=== PATIENT | female | born 1965 | race Caucasian/White ===

== ENCOUNTER → 2023-10-11 08:51 | Outpatient (REF) | payer BC, SELFPAY | LOC: RAD 08:51 | PROVIDERS: ATTENDING PHYSICIAN Internal Medicine; FAMILY PHYSICIAN Family Medicine | DX: M81.0 Age-related osteoporosis without current pathological fracture (principal); L40.50 Arthropathic psoriasis, unspecified | CPT/HCPCS: 72100; 72202; 77080 ==

== ENCOUNTER → 2023-10-12 09:49 | Outpatient (REF) | payer BC, SELFPAY | LOC: WDC 09:49 | PROVIDERS: ATTENDING PHYSICIAN Obstetrics & Gynecology Gynecology; FAMILY PHYSICIAN Family Medicine | DX: R92.2 Inconclusive mammogram (principal) | CPT/HCPCS: 76641 ==

== ENCOUNTER → 2024-05-04 10:50 | Outpatient (REF) | payer OTHER, SELFPAY | LOC: HWRAD 10:50 | PROVIDERS: ATTENDING PHYSICIAN Family Medicine | DX: R10.12 Left upper quadrant pain (principal); F41.9 Anxiety disorder, unspecified; R53.83 Other fatigue | CPT/HCPCS: 76700 ==

== ENCOUNTER → 2024-05-08 07:25 | Outpatient (REF) | payer OTHER, SELFPAY | LOC: MRI 3T 07:25 | PROVIDERS: ATTENDING PHYSICIAN Surgery; FAMILY PHYSICIAN Family Medicine | DX: Z15.01 Genetic susceptibility to malignant neoplasm of breast (principal); Z91.89 Other specified personal risk factors, not elsewhere classified; R92.2 Inconclusive mammogram | CPT/HCPCS: 77049; A9585 ==

== ENCOUNTER → 2024-06-25 10:01 | Outpatient (REF) | payer OTHER, SELFPAY | LOC: HWRAD 10:01 | PROVIDERS: ATTENDING PHYSICIAN Physician Assistant; FAMILY PHYSICIAN Family Medicine | DX: R10.84 Generalized abdominal pain (principal) | CPT/HCPCS: 74177; Q9967 ==

== ENCOUNTER → 2024-09-24 07:58 | Outpatient (REF) | payer OTHER, SELFPAY | LOC: WDC 07:58 | PROVIDERS: ATTENDING PHYSICIAN Obstetrics & Gynecology Gynecology; FAMILY PHYSICIAN Family Medicine | DX: Z12.31 Encounter for screening mammogram for malignant neoplasm of breast (principal) | CPT/HCPCS: 77063; 77067 ==

== ENCOUNTER → 2024-12-03 08:47 | Outpatient (REF) | payer OTHER, SELFPAY | LOC: WDC 08:47 | PROVIDERS: ATTENDING PHYSICIAN Obstetrics & Gynecology Gynecology; FAMILY PHYSICIAN Family Medicine | DX: R92.2 Inconclusive mammogram (principal) | CPT/HCPCS: 76641 ==

== ENCOUNTER → 2025-06-27 09:26 | Outpatient (REF) | payer OTHER, SELFPAY | LOC: MRI 3T 09:26 | PROVIDERS: ATTENDING PHYSICIAN Surgery; FAMILY PHYSICIAN Family Medicine | DX: R92.2 Inconclusive mammogram (principal); Z15.01 Genetic susceptibility to malignant neoplasm of breast; Z91.89 Other specified personal risk factors, not elsewhere classified | CPT/HCPCS: 77049; A9585 ==

== ENCOUNTER → 2025-07-03 14:43 | Outpatient (REF) | payer OTHER, SELFPAY | LOC: WDC 14:43 | PROVIDERS: ATTENDING PHYSICIAN Surgery; FAMILY PHYSICIAN Family Medicine | DX: R92.8 Other abnormal and inconclusive findings on diagnostic imaging of breast (principal) | CPT/HCPCS: 76642 ==

== ENCOUNTER → 2025-07-26 12:45 | Outpatient (REF) | payer OTHER, SELFPAY | LOC: WDC 12:45 | PROVIDERS: ATTENDING PHYSICIAN Surgery; FAMILY PHYSICIAN Family Medicine | DX: R92.8 Other abnormal and inconclusive findings on diagnostic imaging of breast (principal) | CPT/HCPCS: 77061; 77065 ==

== ENCOUNTER → 2025-07-30 06:27 | Outpatient (REF) | payer OTHER, SELFPAY ==
--- NOTE | 2025-07-30 13:56 | OID.BR.INTR ---
OID Breast Navigator - Initial
- -
Did not meet patient at time of biopsy. Will follow up per protocol.
== END ==
LOC: WDC 06:27
PROVIDERS: ATTENDING PHYSICIAN Surgery
DX: R92.1 Mammographic calcification found on diagnostic imaging of breast (principal)
CPT/HCPCS: 19081; 76098; 88305; 88360; A4648

== ENCOUNTER → 2025-09-02 07:59 | Outpatient (REF) | payer OTHER, SELFPAY | LOC: WDC 07:59 | PROVIDERS: ATTENDING PHYSICIAN Surgery | DX: D05.91 Unspecified type of carcinoma in situ of right breast (principal) | CPT/HCPCS: 38792; A9541 ==

== ENCOUNTER 2025-09-03 12:11 | Inpatient (IN) | payer OTHER, SELFPAY ==
[2025-08-22 09:34] LABS: Hematocrit 40.8 % (37.0-47.0); Hemoglobin 13.5 g/dL (12.0-16.0); Mean Corp Hgb Conc. 33.1 g/dL (33.0-37.0); Mean Corpuscular Volume 89.9 fL (81.0-99.0); Platelet Count 176 10^3/uL (130-400); Red Cell Dist. Width 12.7 % (11.5-14.5)
[2025-08-22 09:43] LABS: ALT (SGPT) 23 U/L (0-35); AST (SGOT) 29 U/L (14-36); Albumin 4.6 g/dl (3.5-5.0); Alkaline Phosphatase 56 U/L (38-126); Blood Urea Nitrogen 10 mg/dl (7-17); Calcium 9.2 mg/dl (8.4-10.2); Carbon Dioxide 27 mmol/L (22-30); Chloride 100 mmol/L (98-107); Glucose 76 mg/dl (70-99); Potassium 4.1 mmol/L (3.5-5.1); Sodium 135 mmol/L (135-145); Total Protein 7.3 g/dl (6.3-8.2); eGFR > 60.00
[2025-08-22 09:49] LABS: Prealbumin (Transthyretin) 20.0 mg/dl (17.6-36.0)
[2025-08-22 12:17] LABS: Vitamin D, 25-OH*** 32.8 ng/mL (30-80)
[2025-08-22 13:07] VITALS: BMI 20.7
[2025-09-03] VITALS (11 sets, daily range): BP systolic 5–140; BP diastolic 57–75; BMI 20.7
[2025-09-03] MEDS: TRANSDERM-SCOP 1 PATCH TRANSDERM (13:02)
[2025-09-03] MEDS: NORMOSOL-R/PLASMALYTE-A 1000 IV (13:03)
--- NOTE | 2025-09-03 16:29 | W.IMMPOSTOP ---
Surgical Immed Post Op Note
-
Primary Surgeon: Heather
Assisting Surgeon: None
Pre-op Diagnosis: Right breast DCIS; CHEK2 positive
Post-op Diagnosis: Same
Procedure Performed: Bilateral nipple-sparing mastectomies, right sentinel lymph node mapping and biopsy
Anesthesia Type: GET
Specimen / Cultures: Bilateral breasts, right sentinel nodes
Estimated Blood Loss: 20cc
Complications: None
Operative Findings: None
--- NOTE | 2025-09-03 16:30 | OR.RPT ---
Addendum entered and electronically signed by Chata Romero MD 09/03/25 16:42:
Synoptic operative report: [place] lymph node biopsy
Procedure performed with curative intent: Yes
Tracer(s) to ID sentinel nodes in neoadjuvant setting: Radioactive tracer
Tracer(S) to ID sentinel nodes in the neoadjuvant setting: N/A
All nodes at end of dye filled lymphatic channel removed: N/A
All significantly radioactive nodes were removed: Yes
All palpably suspicious nodes were removed: Yes
Biopsy-proven positive nodes marked prior to chemotherapy ID and removed: N/A
Original Note:
Operative Report
Operative Report
Date of procedure: 09/03/2025
Surgeon: Heather
Preoperative diagnosis: Right breast DCIS; CHEK2 deleterious variant positive
Postoperative diagnosis: Same
Procedure: Bilateral nipple sparing mastectomies and right sentinel lymph node mapping and biopsy
The patient is a 60-year-old female who underwent routine imaging was found to have an indeterminant calcifications biopsied and shown to have right breast ductal carcinoma in situ. She underwent genetic counseling and testing was found to carry a
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 She opted for bilateral mastectomies to be nipple sparing, right sentinel lymph node mapping and biopsy will be performed and she will undergo immediate reconstruction with implant-based reconstruction.
On the day prior to the procedure the patient presented to [facility] where technetium radiotracer was injected into the right breast parenchyma. On the day of the procedure the patient presented to same-day surgical services where she
was prepped. She verified site and procedures. DVT and antibiotic prophylaxis were provided and she was transferred to the operating room.In the supine position general anesthesia was induced. A Clay catheter was inserted using aseptic
technique. Both breasts and chest were prepped and draped in the usual sterile fashion. A timeout procedure was performed by all staff members.
Attention was first turned to the prophylactic left side. Plastic surgery had marked prior breast augmentation incisions and extended it somewhat medially and laterally. This was entered and dissection was carried down to the implant capsule. The
implants were removed and the oncoplastic plane was entered. PlasmaBlade was used to dissect skin and subcutaneous tissue off the underlying breast tissue. Then the breast tissue was dissected off the pectoralis major muscle. Time out of body was
noted and the specimen was oriented for pathology and sent for permanent analysis. Hemostasis was verified and a moist pack was placed in the operative bed. At this juncture plastic surgery entered to begin the reconstructive portion of the
procedure.
In the same fashion the right side was approached and the breast tissue was removed. Nipples were preserved on both sides. On the right side clavipectoral fascia was incised with the cautery and gamma probe was used to identify 2 sentinel nodes
which were excised using the cautery and clipping feeding vessels. After the removal there was a greater than 4 fold reduction of background count. Hemostasis was verified on this side. A moist pack was placed and all sponge needle and instrument
counts were correct at this juncture. Plastic surgery continued with the reconstructive portion of the procedure.
([id number], [id number])
--- NOTE | 2025-09-03 17:19 | W.IMMPOSTOP ---
Surgical Immed Post Op Note
-
Primary Surgeon: JENNA Vincent MD
Assisting Surgeon:
Pre-op Diagnosis: Breast cancer
Post-op Diagnosis: Same
Procedure Performed: Bilateral immediate breast reconstruction with tissue expanders, insertion of ADM mesh
Anesthesia Type: General
Specimen / Cultures: Per Dr. Romero
Estimated Blood Loss: 30 cc total
Complications: None
Operative Findings: As expected
--- NOTE | 2025-09-03 17:19 | OR.RPT ---
Operative Report
Operative Report
Date of surgery: 09/03/2025
Surgeon: JENNA Vincent MD
Preoperative diagnosis: Breast cancer
Postoperative diagnosis: Same
Procedure:
1. Bilateral immediate breast reconstruction with prepectoral tissue expanders
2. Insertion of ADM mesh, bilateral, 6 x 16cm
Complications: None
Anesthesia: General
EBL: 30 cc
Recreation Program Coordinator size: 14 cm
Explant: Bilateral 425 cc saline breast implants
Indications for procedure: Patient was referred to me by Dr. Romero with a recent diagnosis of breast cancer. She was planned to undergo bilateral mastectomy. We discussed her options for breast reconstruction at length including implant based
and autologous options. Patient had a history of breast implants. The patient opted for immediate reconstruction with tissue expanders. She understands that the final reconstruction will be staged. We also discussed the use of ADM and spy
angiography. Risks include reconstructive failure, capsular contracture, infection, delayed wound healing, mastectomy skin flap necrosis, hematoma, seroma and need for repeat procedure. Patient understood these risks and desired to proceed.
Consents were signed accordingly.
Procedure in detail: Patient was identified the preoperative area and the surgical site was confirmed to be the bilateral breast. All questions were answered and consents were confirmed. Patient was then sat upright and normal anatomical landmarks
were marked including midline and inframammary fold. Patient was then taken back to the operating room placed supine on the table. She was prepped and draped in the usual sterile fashion using ChloraPrep solution. A Clay catheter was placed. A
timeout for patient safety was performed was confirmed that bilateral SCDs were in place and preoperative antibiotics administered. The procedure began with Dr. Romero first performing the mastectomy. Her op report will be dictated separately.
When I entered the procedure, the first sided mastectomy had been completed. As such I inspected the wound bed of the chest wall and ensured meticulous hemostasis. The base width was measured and appropriate tissue executive director was selected. One 6 x
16 sheet of Cortiva ADM was rehydrated then soaked in dilute Betadine solution. The executive director was then sutured to the chest wall with a series of 2-0 silk sutures. ADM sling was sutured to the edge of pectoralis and along the inframammary fold
using 2-0 Vicryl. Pectoralis and intercostal blocks were performed with Marcaine. 2 drains were then placed in the preaxial area line with a long subcutaneous tunnel and sutured in place with 2-0 Prolene sutures. The wound was irrigated with
double antibiotic solution and dilute Betadine. The mastectomy incisions were then closed with a series of 3-0 Vicryl's in the deep subcutaneous tissues followed by 3-0 and 4-0 Monocryl's in the deep dermis and superficial skin.
Attention was then placed on the contralateral side after completion of the mastectomy. The exact same procedure was performed. An executive director of the same size was opened and once sheet of ADM was rehydrated and soaked in Betadine. The executive director was
then sutured to the chest wall using 2-0 silks. The ADM sling was sutured to the edge of the pectoralis and along the inframammary fold with 2-0 Vicryl. Pectoralis and intercostal blocks were performed. Meticulous hemostasis was ensured and the
wound was irrigated with combination of double antibiotic solution consisting of Ancef and gentamicin as well as dilute Betadine. The wound was closed in layers with 3-0 Vicryl followed by 3-0 Monocryl and 4-0 Monocryl superficial skin.
The wounds were dressed accordingly and a supportive bra was placed. The patient was extubated taken to the PACU for further care. All counts were correct at the end the case was performed out complication.
--- NOTE | 2025-09-03 19:30 | PTCARENOTE ---
Pt 60 y/o F diagnosis: Breast Cancer arrived on 2S from PACU at 19:32 post B/L Mastectomies R Sential Node Mapping with Biospy & B/L Breast Reconstruction with Tissue Expanders & Insertion of ADM mesh, bilateral. Anesthesia: General, EBL: 30 cc PMH
- Breast Cancer, Psoriasis, Skin Cancer, Pt arrived with a surgical bra and 4 vinod drain from surgical sites, 2 vinod drains Right, 2 vinod drains Left, Pt AOx3, at bedside, pain denies need for pain mgmt at time of arrival to 2S, bed in a low
position, call light in reach, care ongoing.
[2025-09-03] MEDS: ANCEF 5 IV (20:50)
[2025-09-03] MEDS: COLACE 100 MG PO (20:51)
[2025-09-03] MEDS: NEURONTIN 300 MG PO (21:45)
[2025-09-03] MEDS: TYLENOL 1000 MG PO (21:45)
[2025-09-04 03:05] VITALS: BP 98/59
[2025-09-04] MEDS: TYLENOL 1000 MG PO ×3 (03:13→15:57)
[2025-09-04] MEDS: ANCEF 5 IV ×2 (03:13→12:34)
[2025-09-04 06:37] LABS: Hematocrit 36.0 % (37.0-47.0); Hemoglobin 12.1 g/dL (12.0-16.0)
[2025-09-04 07:00] LABS: Blood Urea Nitrogen 7 mg/dl (7-17); Calcium 8.8 mg/dl (8.4-10.2); Carbon Dioxide 29 mmol/L (22-30); Chloride 102 mmol/L (98-107); Estimated Creatinine Clearance 102 ml/min; Glucose 87 mg/dl (70-99); Potassium 5.1 mmol/L (3.5-5.1); Sodium 136 mmol/L (135-145); eGFR > 60.00
[2025-09-04 07:25] VITALS: BP 105/66
--- NOTE | 2025-09-04 09:23 | CM ---
construction engineering manager reviewed patient's chart and met with patient and patient is for discharge to home with spouse. Patient lives with spouse in a 2 story home, patient is independent with adl's and ambulation, patient drives, patient would benefit from
visiting nurses for drain care, options reviewed and patient and she has selected [facility], [facility] liaison contacted.
PCP: Dr Pradip Mccloud
Pharmacy: [facility].
Plan; Home with spouse and [facility]
--- NOTE | 2025-09-04 09:52 | VNURNOTE ---
Home Health Liaison met with patient and spouse at bedside to discuss [facility] nurse/therapy, visits, schedule and homebound status. Patient is agreeable and understands that visits at home will be 2-3 x per week to assess and teach medical and drain
management.
Patient is aware that [facility] will contact them for start of care within a few days after discharge from . Provided contact number for [facility].
[facility] referral completed in [facility].
[2025-09-04] MEDS: NEURONTIN 300 MG PO ×2 (10:00→15:57)
[2025-09-04] MEDS: COLACE 100 MG PO (10:00)
[2025-09-04 11:10] VITALS: BP 105/60
[2025-09-04 15:10] VITALS: BP 96/62
--- NOTE | 2025-09-04 16:46 | W.DCSUMMARY ---
Discharge Summary
Discharge Data
Date of Admission: 09/03/25
Date of Discharge: 09/04/25
-
Pending Results: Yes
Additional Pending Results:
Pathology
Hospital Course
Patient was admitted following bilateral mastectomy and immediate tissue preschool program director reconstruction. She followed a routine postoperative course. She was progressively able to ambulate, tolerate a regular diet and void spontaneously. Her pain was
well-controlled on oral medications. She was discharged with visiting nurse and close surgical follow-up.
Discharge Plan
-
Patient Disposition: Home (Routine Discharge)
Discharge Diagnosis/Procedures: Status post bilateral mastectomy and immediate tissue preschool program director reconstruction
Diet: Regular
Activity: No strenuous activity
Additional Activity: T Naldo arms for ROM; ho heavy lifting >10lbs
Driving Restrictions: Not until seen by your Dr
Bathing Restrictions: OK to Shower
Other Services: [facility]
Wound Care: Strip and record drain output twice daily, compressive bra, remove dressings if they become wet or saturated
Referrals:
Pradip Mccloud MD [Family Provider, Family Practice]
Prescriptions:
New
acetaminophen [Tylenol Extra Strength] 500 mg Tablet
1,000 mg PO Q6H PRN (Reason: mild pain) Qty: 120 0RF
gabapentin 300 mg Capsule
300 mg PO TID 30 Days Qty: 90 2RF
tramadol 50 mg Tablet
50 - 100 mg PO Q6HPRN PRN (Reason: severe pain) 14 Days Qty: 20 0RF
diazepam 5 mg Tablet
5 mg PO TIDPRN PRN (Reason: Muscle Spasms) 14 Days Qty: 42 0RF
cefadroxil 500 mg capsule
500 mg PO BID Qty: 42 0RF
Continued
famotidine [Pepcid] 20 mg Tablet
20 mg PO PRN PRN (Reason: GERD)
calcium carbonate [Tums] 200 mg calcium (500 mg) Tablet,Chewable
200 mg PO PRN PRN (Reason: GERD)
calcipotriene-betamethasone 0.005-0.064 % Ointment
1 applic TOPICAL PRN PRN (Reason: Scalp Psoriasis)
Emergen-C 1,000 mg Powder Effervescent In Packet
1 ea PO PRN PRN (Reason: COLD Symptoms)
Discontinued
gabapentin 100 mg Tablet
100 mg PO TIDPRN PRN (Reason: Pain)
Discharge Orders:
Discharge Patient (As Directed); Ordered 09/04/25
Ordered By: Roni Vincent
Discharge Date and Time
Print Language: BELARUSIAN
--- NOTE | 2025-09-04 16:53 | W.PN.PLAS ---
Progress Note
Subjective Data
Patient doing well, pain well-controlled
Objective Data
Vital Signs
Temp Pulse Resp BP Pulse Ox
98.2 F 55 16 96/62 98
09/04/25 15:10 09/04/25 15:10 09/04/25 15:10 09/04/25 15:10 09/04/25 15:10
Intake and Output
09/03/25 09/04/25 09/05/25
06:59 06:59 06:59
Intake Total 340 / 340
Output Total 1295 / 1295 34 / 34
Balance -955 / -955 -34 / -34
Intake:
Oral fluids 240 / 240
IV fluids (Total) 100 / 100
normosol 100 / 100
Output:
Drain Output (Total) 245 / 245 34 / 34
Left Breast Asa-Russell C 45 / 45 8 / 8
Left Breast Asa-Russell D 50 / 50 5 / 5
Right Breast Asa-Russell A 90 / 90
Right Breast Asa-Russell B 60 / 60 10 / 10
Urine, Clay 600 / 600
Urine, Voided 450 / 450
Other:
Number of approximated LARGE 1
amounts of urine
Physical exam:
No acute distress
No increased work of breathing
Bilateral breast with tissue expanders in place
No undrained fluid collections
All drains serosanguineous with appropriate output
Lab Results
09/04/25 06:18
09/04/25 06:18
Assessment / Plan
Status post bilateral mastectomy and immediate reconstruction with tissue expanders
Discharged home with visiting nurse
== END 2025-09-04 17:36 | disposition home health service (06) | DRG 581 ==
LOC: 2 SOUTH 12:11
PROVIDERS: Surgery Plastic and Reconstructive Surgery; ADMITTING PHYSICIAN Surgery; FAMILY PHYSICIAN Family Medicine
PROC: 0HPU0JZ Removal of Synthetic Substitute from Left Breast, Open Approach (ICD-10-PCS; 2025-09-03)
PROC: 0HBV0ZZ Excision of Bilateral Breast, Open Approach (ICD-10-PCS; 2025-09-03)
PROC: 0HPT0JZ Removal of Synthetic Substitute from Right Breast, Open Approach (ICD-10-PCS; 2025-09-03)
PROC: 07B50ZX Excision of Right Axillary Lymphatic, Open Approach, Diagnostic (ICD-10-PCS; 2025-09-03)
PROC: 0HHV0NZ Insertion of Tissue Expander into Bilateral Breast, Open Approach (ICD-10-PCS; 2025-09-03)
PROC: 0HUV0JZ Supplement Bilateral Breast with Synthetic Substitute, Open Approach (ICD-10-PCS; 2025-09-03)
DX: D05.11 Intraductal carcinoma in situ of right breast (principal); E03.9 Hypothyroidism, unspecified; K21.9 Gastro-esophageal reflux disease without esophagitis; L40.9 Psoriasis, unspecified; Z98.82 Breast implant status; Z80.3 Family history of malignant neoplasm of breast; Z80.0 Family history of malignant neoplasm of digestive organs; Z86.16 Personal history of COVID-19; Z85.828 Personal history of other malignant neoplasm of skin; Z82.49 Family history of ischemic heart disease and other diseases of the circulatory system; Z80.43 Family history of malignant neoplasm of testis; Z80.8 Family history of malignant neoplasm of other organs or systems
CPT/HCPCS: 80048; 80053; 82306; 84134; 85014; 85018; 85027; 88307; 88341; 88342; 88360; 93005; C1729; C1789; L8000; Q4100